=== PATIENT | female | born 1965 | race Caucasian/White ===

== ENCOUNTER 2024-03-06 09:25 | Day surgery (SDC) | payer OTHER ==
[2024-03-02 14:16] VITALS: BMI 30.2
[2024-03-06 10:57] VITALS: RESP 18; TEMP 97
[2024-03-06 11:23] VITALS: BP 118/68; PULSE 76
== END 2024-03-06 11:23 | disposition home or self-care (01) ==
LOC: FASU-ENDO 09:25
PROVIDERS: ATTEND Internal Medicine Gastroenterology
PROC: 0DB68ZX Excision of Stomach, Via Natural or Artificial Opening Endoscopic, Diagnostic (ICD-10-PCS; 2024-03-06)
PROC: 0DB48ZX Excision of Esophagogastric Junction, Via Natural or Artificial Opening Endoscopic, Diagnostic (ICD-10-PCS; 2024-03-06)
PROC: 0DB98ZX Excision of Duodenum, Via Natural or Artificial Opening Endoscopic, Diagnostic (ICD-10-PCS; principal; 2024-03-06 10:37)
DX: K29.50 Unspecified chronic gastritis without bleeding (principal); K31.7 Polyp of stomach and duodenum; R10.13 Epigastric pain
CPT/HCPCS: 88305-TC; 88342-TC

== ENCOUNTER 2024-05-19 09:40 | Day surgery (SDC) | payer OTHER ==
[2024-04-14 12:52] VITALS: BMI 30.2
[2024-05-19] MEDS ORDERED: LIDOCAINE HCL/PF 2% SDV 5ML VIAL ONE (10:59)
[2024-05-19] MEDS ORDERED: PROPOFOL 60 ML ONE (10:59)
[2024-05-19 11:47] VITALS: BP 100/79; PULSE 71; RESP 18; TEMP 97.9
== END 2024-05-19 11:49 | disposition home or self-care (01) ==
LOC: FASU-ENDO 09:40
PROVIDERS: ATTEND Internal Medicine Gastroenterology
PROC: 0DBN8ZX Excision of Sigmoid Colon, Via Natural or Artificial Opening Endoscopic, Diagnostic (ICD-10-PCS; principal; 2024-05-19 10:51)
DX: Z12.11 Encounter for screening for malignant neoplasm of colon (principal); K63.5 Polyp of colon
CPT/HCPCS: 88305-TC